=== PATIENT | female | born 1995 | race Hispanic/Latino ===

== ENCOUNTER 2021-01-01 09:07 | Emergency (ER) | payer MEDICAID ==
[~2021-01-01] VITALS: Ht 162.6 cm; Wt 61.2 kg
[2021-01-01 10:08] LABS: APPEARANCE,URINE Clear (CLEAR); BILIRUBIN,URINE Negative (NEGATIVE); COLOR,URINE Yellow (YELLOW); GLUCOSE, URINE (UA) Negative (NEGATIVE); KETONES,URINE Negative (NEGATIVE); LEUKOCYTE ESTERASE ,URINE Trace (NEGATIVE); NITRATE,URINE Negative (NEGATIVE); OCCULT BLOOD,URINE Large (NEGATIVE); PH,URINE 5.5 (5.0-8.0); PROTEIN,URINE Negative (NEGATIVE); UROBILINOGEN,URINE 0.2 mg/dL (0.2-1.0)
[2021-01-01 10:12] LABS: HCG,QUAL RESULT NEGATIVE (NEGATIVE)
[2021-01-01] MEDS ORDERED: LIDOCAINE HCL 2% VISCOUS 15 ML UDCUP PO ONE (10:30)
[2021-01-01] MEDS ORDERED: HYOSCYAMINE SULFATE 0.125 MG TAB.SUBL SL ONE (10:30)
[2021-01-01] MEDS ORDERED: ONDANSETRON 4MG TABLET PO ONE (10:30)
[2021-01-01 10:46] LABS: BACTERIA,URINE Rare /HPF (None Seen); RBC,URINE 0-1 /HPF (0-1); SQUAMOUS EPITHELIAL CELL,UR Rare /HPF (0-2); WBC,URINE 0-1 /HPF (0-1)
[2021-01-01] MEDS ORDERED: FAMO-136 PO (11:26)
[2021-01-01] MEDS ORDERED: ONDA4TAB10 PO (11:26)
[2021-01-01 12:03] VITALS: BP 110/60
== END 2021-01-01 12:02 | disposition home or self-care (01) ==
LOC: EDH 09:07
DX: R10.33 Periumbilical pain (principal); R11.0 Nausea; Z79.899 Other long term (current) drug therapy
CPT/HCPCS: 81001; 81025; 99284; Q0162